=== PATIENT | female | born 1995 | race Two or more races ===

== ENCOUNTER 2020-03-25 02:26 | Inpatient (IN) | payer OTHER ==
[~2020-03-25] VITALS: Ht 172.7 cm; Wt 68.0 kg
[2020-03-25] MEDS ORDERED: PRENATAL TABLE1 EAC1 PO (02:35)
[2020-03-27] MEDS ORDERED: NAPR500T14 PO (09:06)
== END 2020-03-27 11:07 | disposition home or self-care (01) | DRG 807 ==
LOC: LDR 02:26 → OB/GYN 11:12
PROVIDERS: ADMIT Obstetrics & Gynecology
PROC: 10E0XZZ Delivery of Products of Conception, External Approach (ICD-10-PCS; principal; 2020-03-25)
PROC: 0KQM0ZZ Repair Perineum Muscle, Open Approach (ICD-10-PCS; 2020-03-25)
PROC: 4A1HXCZ Monitoring of Products of Conception, Cardiac Rate, External Approach (ICD-10-PCS; 2020-03-25)
DX: O70.1 Second degree perineal laceration during delivery (principal); Z37.0 Single live birth; Z3A.37 37 weeks gestation of pregnancy